=== PATIENT | male | born 1990 | race Caucasian/White ===

== ENCOUNTER 2025-04-01 17:49 | Emergency (ER) | payer OTHER, BC ==
[2025-04-01 17:56] VITALS: BP 154/105; PULSE 110; RESP 20; TEMP 98; BMI 24.9
[2025-04-01 18:26] LABS: ABSOLUTE IMMATURE GRANULOCYTES 0.01 x10^3/uL (0.0-0.031); BASOPHILS # 0.06 x10^3/uL (0.01-0.08); EOSINOPHIL % 2.2 % (0.8-7.0); EOSINOPHILS # 0.17 x10^3/uL (0.04-0.54); MCHC 32.7 g/dl (32.3-36.5); MEAN CELL VOLUME 84.7 fl (79.0-92.2); MEAN PLT VOLUME 8.6 fl (9.4-12.4); MONOCYTE # 0.58 x10^3/uL (0.30-0.82); MONOCYTE % 7.3 % (5.3-12.2); RDW 13.2 % (12.0-15.6)
[2025-04-01] MEDS: BICTEGRAV/EMTRICIT/TENOFOV (BIKTARVY) 50-200-25 MG TABLET PO ONE (18:26)
[2025-04-01 18:43] LABS: GLUCOSE,RANDOM 93.0 mg/dL (74-106)
[2025-04-01 18:44] LABS: TOT PROT 8.3 g/dl (6.4-8.2)
[2025-04-01 18:45] LABS: CO2 23.0 mmol/L (21-32)
[2025-04-01 18:46] LABS: ALK PHOS 109.0 U/L (40-150)
[2025-04-01] MEDS: HIV POST EXPOSURE PROPHYLAXIS KIT PO ONE (18:46)
[2025-04-01] MEDS ORDERED: HIV POST EXPOSURE PROPHYLAXIS KIT PO ONE (18:46)
[2025-04-01 18:48] LABS: LDL CHOLESTEROL (ONLY SJRH) 176.0 mg/dL (5-100)
[2025-04-01 18:49] LABS: CREATININE 0.96 mg/dL (0.55-1.3); SGOT/AST 29.0 U/L (5-34); SGPT/ALT 33.0 U/L (0-55)
[2025-04-01 19:11] LABS: HIV INTERPRETATION NEGATIVE (NEGATIVE)
[2025-04-05 00:37] LABS: HEPATITIS B SURF AG NON-MATERN NON-REACTIVE (NONREACTIVE)
== END 2025-04-01 18:48 | disposition home or self-care (01) ==
LOC: JER 17:49
DX: Z57.9 Occupational exposure to unspecified risk factor (principal)
CPT/HCPCS: 36415; 80053; 80061; 84443; 85025; 86704; 86705; 86707; 86780; 86803; 87340; 87350; 87389; 87517; 87522; 99283-25